=== PATIENT | male | born 1935 | race Two or more races ===

== ENCOUNTER 2016-09-08 06:37 | Day surgery (SDC) | payer MEDICARE, OTHER ==
[2016-09-08] MEDS ORDERED: PROPOFOL 200 MG/20 ML BOTTLE IV ONE ×2 (07:30)
[2016-09-08] MEDS ORDERED: hydrALAZINE HCL 20 MG/1 ML VIAL IV ONE (07:30)
[2016-09-08] MEDS ORDERED: PHENYLEPHRINE 10 MG/1 ML VIAL MC ONE (07:30)
[2016-09-08] MEDS ORDERED: EPHEDRINE SULFATE 50 MG/ML AMPUL MC ONE (07:30)
[2016-09-08] MEDS ORDERED: CEFAZOLIN 1 G VIAL MC ONE (07:30)
[2016-09-08] MEDS ORDERED: IV LACTATED RINGERS SOLUTION 1,000 ML BAG MC ONE (07:30)
[2016-09-08] MEDS ORDERED: LIDOCAINE-MPF 2% 5 ML VIAL MC ONE (07:30)
[2016-09-08] MEDS ORDERED: POLYMYXIN B SULFATE 500,000 UNITS, BACITRACIN 50,000 UNITS, NORMAL SALINE 20 ML MC ONE ×3 (08:15)
[2016-09-08] MEDS ORDERED: METOPROLOL TARTRATE 5 MG/5 ML VIAL IVP PRN (08:15)
[2016-09-08] MEDS ORDERED: hydrALAZINE HCL 20 MG/1 ML VIAL ONE (08:22)
[2016-09-08] MEDS ORDERED: BUPIVACAINE PF 0.5% 30 ML VIAL ONE (08:59)
[2016-09-08] MEDS ORDERED: LIDOCAINE 0.5% MPF 50 ML VIAL ONE (09:37)
[2016-09-08] MEDS ORDERED: MIDAZOLAM HCL 2 MG/2 ML VIAL ONE (09:41)
[2016-09-08] MEDS ORDERED: FENTANYL CITRATE 100 MCG/2 ML AMPUL ONE (09:41)
== END 2016-09-08 11:50 | disposition home or self-care (01) ==
LOC: DS 06:37
PROVIDERS: ATTEND Orthopaedic Surgery
DX: G56.02 Carpal tunnel syndrome, left upper limb (principal); I10 Essential (primary) hypertension; R73.9 Hyperglycemia, unspecified; J30.9 Allergic rhinitis, unspecified; Z85.51 Personal history of malignant neoplasm of bladder; N40.0 Benign prostatic hyperplasia without lower urinary tract symptoms; N20.0 Calculus of kidney; M19.90 Unspecified osteoarthritis, unspecified site; Z98.890 Other specified postprocedural states; H91.90 Unspecified hearing loss, unspecified ear; E78.00 Pure hypercholesterolemia, unspecified
CPT/HCPCS: A4649; A4663; J0360; J0690; J2250; J2370; J3010; J3490; J7120